=== PATIENT | female | born 1995 | race Caucasian/White ===

== ENCOUNTER 2024-11-11 14:49 | Outpatient (AMB) | payer OTHER, SELFPAY ==
--- NOTE | 2024-11-11 15:12 | A.OFFPC_ITS ---
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 Note: New patient visit Heel Builder Machine Required: No Allergies amoxicillin Allergy (Severe, Verified 11/11/24 15:12) Hives Medication List - Last Reconciled 11/11/24 by Jaqueline Stubbs PA-C levothyroxine (Levoxyl) 100 mcg PO DAILY Tobacco use date assessed: 11/11/24 Dental Screening Dental Screen Date: 11/11/24 Did you have a dental visit in the last 12 months?: No Did you have a dental problem in the last 6 months where you did not have access to dental care?: No Was dental information given to patient?: Patient declined 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 She states she reacts to the levothyroxine and is getting hives from it. She is now taking it every other day because she wants to stop it. 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 Paternal Grandmother High cholesterol HTN (hypertension) Social History (Updated 11/11/24 @ 15:20 by Omaira Rao CMA) Housing: House Alcohol intake: never Patient Tobacco Use Status: Never used Tobacco e-Cigarette/Vaping Use: Never Used Second Hand Smoke Exposure: Yes service: No Current occupational status: employed and unemployed Cognitive needs: No Hearing needs: No Vision needs: No Questionnaire PHQ-9 Over the last 2 weeks, how often have you been bothered by any of the following problems? 1. Little interest or pleasure in doing things: not at all 2. Feeling down, depressed, or hopeless: not at all 3. Trouble falling or staying asleep, or sleeping too much: not at all 4. Feeling tired or having little energy: not at all 5. Poor appetite or overeating: not at all 6. Feeling bad about yourself - or that you are a failure or have let yourself or your family down: not at all 7. Trouble concentrating on things, such as reading the newspaper or watching t elevision: not at all 8. Moving or speaking so slowly that other people could have noticed. Or the opposite - being so fidgety or restless that you have been moving around a lot more than usual: not at all 9. Thoughts that you would be better off or of hurting yourself in some way: not at all Total score: 0 Depression Screening Interpretation: Negative Depression Screening Done: Yes 26257 - PHQ-9 Billing: Yes Source: Developed by Drs. Cy Barnes, Noni Bowling, Hernando Haney and colleagues, with an educational arabella from [employer]. Thrive Questionnaire Date Thrive assessed: 11/11/24 I am a: Patient What is your living situation today?: I have a steady place to live Within the past 12 months, did the food you bought not last and you didn't have the money to get more?: Never true Within the past 12 months, did you worry whether your food would run out before you got money to buy more?: Never true Do you have trouble paying for medicines?: No Do you have trouble getting transportation to medical appointments?: No Do you have trouble paying your heating and electricity bill?: No Do you have trouble taking care of your child, family member or friend?: No Do you have trouble with day-to-day activities such as bathing, preparing meals, shopping, managing finances, etc.?: No Are you currently unemployed and looking for a job?: I choose not to answer this question Are you interested in more education?: I choose not to answer this question Please select the resources that you would like help with: None Currently or been in a relationship where the following occur: No concerns reported THRIVE Score: 0 AUDIT C Alcohol Use Questionnaire (AUDIT-C) 1. How often do you have a drink containing alcohol?: Never 3. How often do you have six or more drinks on one occasion?: Never Total Score: 0 PRAVEENA-7 AMB Questionnaire PRAVEENA-7 Date PRAVEENA - 7 assessed: 11/11/24 Feeling nervous, anxious, or on edge: 0 = Not at all Not being able to stop or control worryin = Not at all Worrying too much about different things: 0 = Not at all Trouble relaxin = Not at all Being so restless that it is hard to sit still: 0 = Not at all Becoming easily annoyed or irritable: 0 = Not at all Feeling afraid as if something awful might happen: 0 = Not at all Total PRAVEENA-7 score (0-4 normal; 5-9 mild; 10-14 moderate; 15-21 severe): 0 Source: Developed by Drs. Cy Barnes, Noni Bowling, Hernando Haney and colleagues, with an educational araeblla from [employer]. PRAVEENA-7 Assessment Billing PRAVEENA-7 Assessment Tool: PRAVEENA-7 Assessment 83718 Physical exam (Primary Care) Vital Signs: Last Vital Signs Pulse 90 11/11/24 15:14 Resp 12 11/11/24 15:14 BP 116/82 11/11/24 15:14 Pulse Ox 99 11/11/24 15:14 Oxygen Delivery Method Room Air 11/11/24 15:14 BMI result Body Mass Index 34.9 Tobacco/Smoking Status: Tobacco use Status Tobacco use date assessed 11/11/24 11/11/24 15:17 Patient Tobacco Use Status Never used Tobacco 11/11/24 15:20 e-Cigarette/Vaping Use Never Used 11/11/24 15:20 PHQ-9: PHQ-9 Score PHQ-9: Total score 0 11/11/24 15:23 Depression Screening Interpretation: Negative Thrive Assessment: Date of Thrive Assessment Date Thrive assessed 11/11/24 11/11/24 15:22 Currently or been in a relationship where the following occur: No concerns reported Const Orientation/consciousness: patient oriented x3 HENMT Ears: hearing grossly normal bilaterally Neck Thyroid: Thyroid normal Lymphatic: no lymphadenopathy noted Resp Auscultation: clear to auscultation bilaterally Cardio Rate: regular rate Rhythm: regular rhythm Heart sounds: S1 normal heart sound present and S2 normal heart sound present GI Inspection: Yes normal to inspection Palpation (GI): Soft to palpation and Other GI palpation findings present (nontender, no cva tenderness) Auscultation: normoactive bowel sounds Rectal Exam - Female: deferred Skin General skin exam: no rashes or lesions noted Neuro General: patient oriented x3, gait normal and no focal motor deficits Coding Level of Care Code New Pt Level 3 (18982) Complex EM visit Add On G2211 Diagnoses Hypothyroid E03.9 Additional Codes PRAVEENA-7 Assessment Billing - PRAVEENA-7 Assessment Tool: PRAVEENA-7 Assessment 04484 ([id number]) PHQ-9 - 07526 - PHQ-9 Billing: Yes ([id number]) Assessment & Plan Assessment & Plan (1) Hypothyroid: Code(s): E03.9 - Hypothyroidism, unspecified Category: Medical Plan: We will check labs today and follow up pending test results. Plan Physical labs ordered. Advised to return for a full physical Orders: Orders TSH reflex Free T4 Today E03.9 - Hypothyroidism, unspecified, Z00.00 - Encounter for general adult medical examination without abnormal findings Complete Blood Count Auto Diff Today E03.9 - Hypothyroidism, unspecified, Z00.00 - Encounter for general adult medical examination without abnormal findings UA CC w/rflx Micro + Cult Today E03.9 - Hypothyroidism, unspecified, R30.0 - Dysuria, Z00.00 - Encounter for general adult medical examination without abnormal findings Comprehensive [place]. Panel Fast Today E03.9 - Hypothyroidism, unspecified, Z00.00 - Encounter for general adult medical examination without abnormal findings Hemoglobin A1c Today E03.9 - Hypothyroidism, unspecified, R73.01 - Impaired fasting glucose, Z00.00 - Encounter for general adult medical examination without abnormal findings Lipid Panel Today E03.9 - Hypothyroidism, unspecified, Z00.00 - Encounter for general adult medical examination without abnormal findings Thyroglobulin Antibodies Today E03.9 - Hypothyroidism, unspecified, Z00.00 - Encounter for general adult medical examination without abnormal findings Thyroid Peroxidase Antibodies Today E03.9 - Hypothyroidism, unspecified, Z00.00 - Encounter for general adult medical examination without abnormal findings
[2024-11-11 15:14] VITALS: BP 116/82; PULSE 90; RESP 12; O2SAT 99; BMI 34.9
--- OUTSIDE RECORDS SUMMARY | 2024-11-11 16:31 | XMS_ITS ---
Author Name [facility] Organization Unknown Care Team Organization Name Specialty Phone Email Start Date End Da te [facility] Lisa García DO Primary Care 01/01/202209/24
--- OUTSIDE RECORDS SUMMARY | 2024-11-11 16:31 | XMS_ITS | Clinical Summary ---
Author Organization [facility] [address] [facility] lding Address [address] [facility] [place] [address] Phone Care Team Providers Care Aboriginal Community Council Member Name Role Phone Physician, Pcp Unknown Primary Care Provider Gail vailable Allergies Active Allergy Reactions Criticality Noted Date Comments Amoxicillin Swelling Low 12/22/2017 Other Reaction(s): Hives/Urticaria Sulfa (Sulfonamide Antibiotics) 12/22/2017 Medications cetirizine (ZyrTEC) 10 mg tablet Take 1 tablet (10 mg total) by mouth every 12 (twelve) hours. 01/22/2022 Active levothyroxine (SYNTHROID, LEVOTHROID) 100 mcg tablet Take 1 tablet (100 mcg total) by mouth 1 (one) time each day. 90 each 04/15/2024 Active Active Problems Problem Noted Date Diagnosed Date Elevated SGOT 10/30/2020 Overview (01/28/2024): 59 on IP labs D/w Dr. Zepeda, will repeat NV 11/23/20 15 Obesity (BMI 30.0-34.9) 10/28/2018 Overview (01/28/2024): Pre BMI 35 HgbA1C at initial labs 5.0 One hour GTT in first trimester Repeat GTT 24-28 weeks if early is normal Level 2 Survey (at [facility] for BMI >40) Screen for MARLO (using tool) and refer for sleep study if positive Anesthesia consult for pre- BMI >45 or >50 lb weight gain DVT prophylaxis- Lovenox if CS and BMI >35 Hypothyroid 12/22/2017 Overview (01/28/2024): Two approaches: 1) TSH at diagnosis of and increase dose of levothyroxine if TSH >2.5, check TSH 4 weeks later - TSH 20.28. D/w Dr. Zepeda, will refer to Endocrine 12/21/20 - pt was not taking levothyroxine at time of IP labs, TSH 11/23 4.1, 12/21 5.17. 2)Double dose of levothyroxine two days per week, continue baseline dose other days, check TSH 4-6 weeks later Q trimester TSH with reflex once stable on meds Refer to Endocrine or PCP if they usually manage - saw Endocrine 02/26/2021, they had her double her dose on Friday and , will recheck in one month 04/09/2021 TSH 4.06, endocrine recommends staying on same dose Supplement once daily with iron 4-6 hours after levothyroxine Growth US at 32 weeks- 03/14/2021- normal growth scan. EFW- 76%tile Return to pre- dose of levothyroxine while inpatient and provide 1 mo Rx with plan for follow with PCP Immunizations Name Administration Dates Next Due Tdap Tetanus diptheria acell ular pertussis (Boostrix; Adacel) 7yo and older 11/04/2017 Surgical History Surgery Date Site/Laterality Comments WISDOM TOOTH EXTRACTION 2013 PROCEDURE: HISTORICAL WISDOM TEETH EXTRACTION SECTION 04/2021 PROCEDURE: HISTORICAL DELIVERY Medical History Medical History Date Comments Migraine with aura 04/06/2018 DX:Migraine w ith aura Acquired hypothyroidism 12/22/2017 DX:Acqui red hypothyroidism Gestational hypertension, antepartum 12/22/2017 DX:Gestational hypertension, antepartum Family history of cancer 04/27/2018 DX:Fami ly history of cancer; COMMENT: Genetic testing pending Obesity DX:Obesity HSV-1 infection DX:HSV-1 infecti on; COMMENT: coldsores Crepitus of left TMJ on open ing of jaw DX:Crepitus of left TMJ on o pening of jaw Seasonal allergies DX:Seasonal a llergies Anemia affecting i n third trimester 03/09/2021 DX:Anemia affecting pregnanc y in third trimester; COMMENT: H&H 9.0/29.8, will start on Fe supplementation Family History Medical History Relation Name Comments Breast cancer Aunt 1 Breast cancer Aunt 2 Hypertension Father Colon cancer Maternal Grandfather cigaret te use, ETOH abuse Hypertension Mother glaucoma Other: neg BRCA Mother Relation Name Status Comments Aunt 1 Aunt 2 Father Alive Maternal Grandfather Mother Alive Social History Tobacco Use Types Packs/Day Years Used Date Smoking Tobacco: Never Smokeless Tobacco: Never Alcohol Use Standard Drinks/Week Comments No 0 (1 standard drink = 0.6 oz pur e alcohol) Comments No Sex and Gender Information Value Date Recorded Sex Assigned at Not on file Legal Sex Female 3:24 PM EST Gender Identity Not on file Sexual Orientation Not on file Obstetrics History Para Term AB IAB SAB Ectopic Multiple Livin g Live Births 2 2 2 2 2 Date Outcome GA Total Labor Labor/2nd/3rd Weight Sex Type Anes PTL Kayla A1 A5 Name Clin 2017 Term 40w 0d 3614 g (127.5 oz) F Vag-S pont Epidur al N Livin g 9 9 [place] Complications:Third-degree p erineal laceration, ,-induced hypertension,Hypothyroidism,Carrier of group B Streptococcus,Anemia Delivery Location:[facility] Comments:magnesium sul fate during labor 2021 Term 41w 2d 3975 g (140.2 oz) CS-LT ranv [facility]in g [facility] Comments:face presenta tion Last Filed Vital Signs Vital Sign Reading Time Taken Comments Blood Pressure 126/85 04/16/2024 10:06 AM EST Pulse 72 04/16/2024 10:06 AM EST Temperature - - Respiratory Rate 18 04/16/2024 10:06 AM EST Oxygen Saturation - - Inhaled Oxygen Concentration - - Weight 87.2 kg (192 lb 3.2 oz) 04/16/2024 10:06 AM EST Height 160 cm (5' 3 ) 04/16/2024 10:06 AM EST Body Mass Index 34.05 04/16/2024 10:06 AM EST Plan of Treatment Health Maintenance Due Date Last Done Comments Hepatitis B Vaccines (1 of 3 - 19+ 3-dose series) 2012 Social Influencers of Health Screening 02/02/2022 Depression Screening 02/25/2024 Hypertension/CHF/CAD Annual BMP Blood Test 04/16/2024 04/10/2023 COVID-19 Vaccine ( season) 2024 Influenza Vaccine (#1) 2024 Cervical Cancer Screening: HPV 07/05/2025 07/05/2022 Cervical Cancer Screening: Pap Smear 07/05/2025 07/05/2022, 07/05/2022, 07/05/2022, Additional history exists DTaP,Tdap,and Td Vaccines (2 - Td or Tdap) 11/05/2027 11/04/2017 Cholesterol Screening (Lipid Panel) 04/10/2028 04/10/2023 HIV Screening Completed 10/25/2020 Hepatitis C Screening Completed 10/25/2020 HIB Vaccines Aged Out No longer eligi ble based on patient's age to complete this topic HPV Vaccines Aged Out No longer eligi ble based on patient's age to complete this topic Hepatitis A Vaccines Aged Out No long er eligible based on patient's age to complete this topic IPV Vaccines Aged Out No longer eligi ble based on patient's age to complete this topic MMR Vaccines Aged Out No longer eligi ble based on patient's age to complete this topic Meningococcal ACWY Vaccine Aged Out N o longer eligible based on patient's age to complete this topic Meningococcal B Vaccine Aged Out No l onger eligible based on patient's age to complete this topic Pneumococcal Vaccine: Pediatrics (0 to 5 Years) and At-Risk Patients (6 to 49 Years) Aged Out No longer eligible based on patient's age to complete this topic RSV Immunization Patients Under 20 months Aged Out No longer eligible based on patient's age to complete this topic Varicella Vaccines Aged Out No longer eligible based on patient's age to complete this topic Procedures Procedure Name Priority Date/Time Associated Diagnosis Comments ANNUAL BMP BLOOD TEST Routine 04/10/2023 LIPID PANEL Routine 04/10/2023 HPV Routine 07/05/2022 PAP SMEAR Routine 07/05/2022 HEPATITIS C SCREENING Routine 10/25/2020 HIV SCREENING Routine 10/25/2020 from Last 3 Months or Most Recently Relevant to Health Maintenance Results * Annual BMP Blood Test (04/10/2023) [facility] Annual BMP Blood Test abstracted [facility] Provider HEALTH MAINTENANCE Final Result * Lipid panel (04/10/2023) [facility] LDL/HDL Ratio 2 0 - 4 Triglycerides 50 0 - 150 mg/dL Cholesterol 100 0 - 200 mg/dL HDL 43 >=40 mg/dL LDL Cholesterol 47 0 - 100 mg/dL Blood Venous blood specimen / Unknown Result [facility] Provider LAB BLOOD ORDERABLES Jelly l Result * Cervical Cancer Screening: HPV (07/05/2022) [facility] Cervical Cancer Screening: HPV abstracted, no interpretation [facility] Provider HEALTH MAINTENANCE Final Result * Pap smear (07/05/2022) 07/05/2022 Narrative HISTORICAL TESTING LAB RESULTING AGENCY - 07/11/2022 6:26 AM EDT [id number] THINPREP PAP, IMAGED: NEGATIVE FOR SQUAMOUS INTRAEPITHELIAL LESION AND MALIGNANCY . TORSTEN JUAN(ASCP) (CASE ELECTRONICALLY SIGNED 07 10 2022) ADEQUACY: SATISFACTORY ENDOCERVICAL/TRANSFORMATION ZONE COMPONENT PRESENT. SOURCE: THINPREP PAP HPV IF ASCUS, CERVICAL, IMAGED CLINICAL INFORMATION: HPV IF DIAGNOSIS OF ASCUS. HORMONES, PAP HX NEGATIVE, [Z01.419] Elana Velásquez DO LAB CYTOLOGY ORDERABLES Final Result HISTORICAL TESTING LAB RESULTING AGENCY * HIV Screening (10/25/2020) [facility] HIV Screening abstracted [facility] Provider HEALTH MAINTENANCE Final Result * Hepatitis C Screening (10/25/2020) [facility] Hepatitis C Screening abstracted us Historical Provider HEALTH MAINTENANCE Final Result from Last 3 Months or Most Recently Relevant to Health Maintenance Insurance [facility] Care Teams Aboriginal Community Council Member Relationship Specialty Start Date End Date Physician, Pcp Unknown PCP - General 04/16/24
== END 2024-11-11 15:38 | disposition home or self-care (01) ==
LOC: HO.HMCFM 14:50
PROVIDERS: PCP Physician Assistant; Visit Provider Physician Assistant
DX: E03.9 Hypothyroidism, unspecified (principal)

== ENCOUNTER → 2024-11-11 14:49 | Outpatient (BNVA) | payer OTHER, SELFPAY | PROVIDERS: PCP Physician Assistant; Visit Provider Physician Assistant | DX: E03.9 Hypothyroidism, unspecified (principal) | CPT/HCPCS: 96127; 99202 ==

== ENCOUNTER 2024-11-12 09:38 | Outpatient (REF) | payer OTHER, SELFPAY ==
--- OUTSIDE RECORDS SUMMARY | 2024-11-12 10:14 | XMS_ITS | Clinical Summary ---
Author Organization [facility] [address] [facility] lding Address [address] [facility] [place] [address] Phone Care Team Providers Care Concrete Bucket Hooker Name Role Phone Physician, Pcp Unknown Primary [...] early is normal Level 2 Survey (at [facility] for BMI >40) Screen for MARLO [...] ,-induced hypertension,Hypothyroidism,Carrier of group B Streptococcus,Anemia Delivery Location:[facility] Comments:magnesium sul fate during labor 2021 Term 41w 2d 3975 g (140.2 oz) CS-LT ranv Livin g Dr [facility] Comments:face presenta tion Last Filed Vital Signs [...] 11/04/2017 Cholesterol Screening (Lipid Panel) 04/10/2028 04/10/2023 RSV Immunization Adult Patients (1 - 1-dose 75+ series) 2068 HIV Screening Completed 10/25/2020 Hepatitis C Screening [...] TEST Routine 04/10/2023 LIPID PANEL Routine 04/10/2023 HM HPV Routine 07/05/2022 PAP SMEAR Routine 07/05/2022 HEPATITIS C SCREENING Routine 10/25/2020 HIV SCREENING Routine 10/25/2020 from Last 3 Months or Most Recently Relevant to Health Maintenance Results * Annual BMP Blood Test (04/10/2023) Pathologist [facility] Annual BMP Blood Test abstracted Historical Provider HEALTH MAINTENANCE Final Result * Lipid panel (04/10/2023) [facility] LDL/HDL Ratio 2 0 - 4 Triglycerides 50 0 - 150 mg/dL Cholesterol 100 0 - 200 mg/dL HDL 43 >=40 mg/dL LDL Cholesterol 47 0 - 100 mg/dL Blood Venous blood specimen / Unknown Result [facility] Historical Provider LAB BLOOD ORDERABLES Jelly l Result * Cervical Cancer Screening: HPV (07/05/2022) [facility] Cervical Cancer Screening: HPV abstracted, no interpretation Result [facility] Historical Provider HEALTH MAINTENANCE Final Result * Pap smear (07/05/2022) 07/05/2022 Narrative HISTORICAL TESTING LAB RESULTING AGENCY - 07/11/2022 6:26 AM EDT [id number] THINPREP PAP, IMAGED: NEGATIVE FOR SQUAMOUS INTRAEPITHELIAL LESION AND MALIGNANCY . MISTY MAYES , TORSTEN(ASCP) (CASE ELECTRONICALLY SIGNED 07 10 2022) ADEQUACY: SATISFACTORY ENDOCERVICAL/TRANSFORMATION ZONE COMPONENT PRESENT. SOURCE: THINPREP PAP HPV IF ASCUS, CERVICAL, IMAGED CLINICAL INFORMATION: HPV IF DIAGNOSIS OF ASCUS. HORMONES, PAP HX NEGATIVE, [Z01.419] Elana Velásquez DO LAB CYTOLOGY ORDERABLES Final Result HISTORICAL TESTING LAB RESULTING AGENCY * HIV Screening (10/25/2020) [facility] HIV Screening abstracted Historical Provider HEALTH MAINTENANCE Final Result * Hepatitis C Screening (10/25/2020) Hepatitis C Screening abstracted us Historical Provider HEALTH MAINTENANCE Final Result from Last 3 Months or Most Recently Relevant to Health Maintenance Insurance [facility] Care Teams Concrete Bucket Hooker Relationship Specialty Start Date End Date Physician, Pcp Unknown PCP - General 04/16/24
[2024-11-12 11:21] LABS: MANUAL DIFF FLAG NO
[2024-11-12 11:26] LABS: Hematocrit 34.9 % (37.0-47.0); Hemoglobin 10.7 g/dl (12.0-16.0); Imm Gran Abs Auto 0.01 X10*3/uL (0.00-0.03); Imm Gran Pct Auto 0.2 % (0.0-0.4); Lymphocytes Absolute Auto 1.7 X10*3/uL (1.2-4.9); Mean Corpuscular HGB Conc 30.7 g/dl (31.0-35.0); Mean Corpuscular Hemoglobin 24.4 pg (27.0-33.0); Mean Corpuscular Volume 79.7 fL (80.0-98.0); NRBC Abs Auto 0.000 X10*3/uL (0.0-0.012); NRBC Pct Auto 0.0 /100WBC (0.0-0.2); Platelet Count 245 X10*3/uL (160-400); Red Blood Count 4.38 X10*6/uL (4.20-5.50); White Blood Count 5.8 X10*3/uL (4.8-10.8)
[2024-11-12 11:39] LABS: Hemoglobin A1C 104.5328 umol/L; Total Hemoglobin (HGBA1C) 2883.2160 umol/L
[2024-11-12 12:43] LABS: Alanine Aminotransferase 9 U/L (0-31); Albumin Level 4.7 g/dL (3.5-5.0); Alkaline Phosphatase 90 U/L (39-117); Anion Gap 12 (12-20); Aspartate Amino Transferase 20 U/L (5-31); Blood Urea Nitrogen 9 mg/dL (9-16); Calcium 9.1 mg/dL (8.4-10.2); Carbon Dioxide 28 mmol/L (22-29); Chloride 107 mmol/L (96-108); Cholesterol 111 mg/dL (<200); Estimated Glomerular Filt Rate > 60; HDL Cholesterol 40 mg/dL (>40); Potassium 3.9 mmol/L (3.3-5.1); Sodium 143 mmol/L (135-145); Total Protein 7.6 g/dL (6.5-8.0); Triglycerides 40 mg/dL (<150)
[2024-11-12 13:30] LABS: Free T4 (Free Thyroxine) 0.86 ng/dL (0.71-1.85)
[2024-11-12 14:39] LABS: Appearance Urine Clear; Glucose Urine UA Negative (Negative); PH 7.0 (5.0-9.0); Specific Gravity - Urine 1.025 (1.005-1.025)
[2024-11-17 17:10] LABS: Thyroglobulin Antibodies 8 IU/mL (< or = 1)
== END 2024-11-12 09:39 | disposition home or self-care (01) ==
LOC: HO.WFDLDS 09:38
PROVIDERS: Visit Provider Physician Assistant
DX: Z00.00 Encounter for general adult medical examination without abnormal findings (principal); R73.01 Impaired fasting glucose; E03.9 Hypothyroidism, unspecified; R30.0 Dysuria
CPT/HCPCS: 36415; 80053; 80061; 81003; 83036; 84439; 84443; 85025; 86376; 86800

== ENCOUNTER 2024-12-08 15:54 | Outpatient (AMB) | payer OTHER, SELFPAY ==
--- NOTE | 2024-12-08 15:28 | MHC.PC.OV ---
Intake Visit Reasons: bloodwork results Intake Note: Blood work results Extension Service Specialist In Charge Required: No Allergies amoxicillin Allergy (Severe, Verified 12/08/24 15:51) Hives Medication List - Last Reconciled 12/08/24 by Jaqueline Stubbs PA-C levothyroxine (Levoxyl) 100 mcg PO DAILY Tobacco use date assessed: 12/08/24 Dental Screening Dental Screen Date: 11/11/24 HPI bloodwork results HPI Details Pt is a 29 y/o female who presents for a follow up. She has a history of hypothyroidism. Endo: We recently did labs which showed that she has antibodies. We discussed today that she is consistent with having Ja's hypothyroidism. She says that she has been off of the levothyroxine for the last month or so because she gets hives when she takes it. She did not want a rash when she got . She says that is being off of the levothyroxine has made her body feel better. She does not have any symptoms and overall feels well. 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 Paternal Grandmother High cholesterol HTN (hypertension) Social History (Updated 12/08/24 @ 15:52 by Omaira Rao CMA) Housing: House Alcohol intake: never Patient Tobacco Use Status: Never used Tobacco e-Cigarette/Vaping Use: Never Used Second Hand Smoke Exposure: Yes Use of substances other than those prescribed or required for medical reasons: No service: No Current occupational status: unemployed Cognitive needs: No Hearing needs: No Vision needs: No Questionnaire Thrive Questionnaire Date Thrive assessed: 11/11/24 PRAVEENA-7 AMB Questionnaire PRAVEENA-7 Date PRAVEENA - 7 assessed: 11/11/24 Source: Developed by Drs. Cy Barnes, Noni Bowling, Hernando Haney and colleagues, with an educational arabella from [employer]. Physical exam (Primary Care) Tobacco/Smoking Status: Tobacco use Status Tobacco use date assessed 12/08/24 12/08/24 15:52 Patient Tobacco Use Status Never used Tobacco 12/08/24 15:52 e-Cigarette/Vaping Use Never Used 12/08/24 15:52 Thrive Assessment: Date of Thrive Assessment Date Thrive assessed 11/11/24 12/08/24 15:28 Telehealth Telehealth Telehealth Platform: Telephone Location of provider rendering services: practice address Location of patient: address on file Patient Identification confirmed using: Name, : Yes Telehealth method: voice only Patient verbally consented to treatment: Yes Patient verbally consented to billing insurance company: Yes Patient informed of any privacy concerns related to visit: Yes Minutes spent on Phone/Video with Pt.: 15 Coding Level of Care Code Tele Est Pt Level 2 (99857) Diagnoses Hypothyroid E03.9 Assessment & Plan Assessment & Plan (1) Hypothyroid: Code(s): E03.9 - Hypothyroidism, unspecified Category: Medical Plan: We will try Synthroid. She will let me know if she is unable to tolerate this medication or has any side effects to this. We will rechecked TSH in 6 weeks. She will follow up sooner if needed. Patient understands and agrees with this plan. Orders: Orders TSH reflex Free T4 12/08/24 E03.9 - Hypothyroidism, unspecified Medications: New Synthroid (levothyroxine) 75 mcg PO DAILY 90 tabs 0RF NS E03.9 - Hypothyroidism, unspecified
--- OUTSIDE RECORDS SUMMARY | 2024-12-08 19:08 | XMS_ITS | Clinical Summary ---
Author Organization [facility] [address] [facility] lding Address [address] [facility] [place] [address] Phone Care Team Providers Care Hadoop Consultant Name Role Phone Physician, Pcp Unknown Primary [...] early is normal Level 2 Survey (at [facility] for BMI >40) Screen for MARLO [...] with plan for follow with PCP Immunizations Immunization Administration Dates Next Due Tdap Tetanus diptheria [...] ,-induced hypertension,Hypothyroidism,Carrier of group B Streptococcus,Anemia Delivery Location:[facility] Comments:magnesium sul fate during labor 2021 Term 41w 2d 3975 g (140.2 oz) CS-LT ranv Livin g Dr Arte[facility] Comments:face presenta tion Last Filed Vital [...] of 3 - 19+ 3-dose series) 2012 HPV Vaccines (1 - 3-dose SCDM series) 2020 Social Influencers of Health Screening 02/02/2022 Depression Screening 02/25/2024 Hypertension/CHF/CAD Annual BMP Blood Test 04/16/2024 04/10/2023 COVID-19 Vaccine ( - season) 2024 Influenza Vaccine (#1) 2024 Cervical [...] * Annual BMP Blood Test (04/10/2023) Pathologist [facility] Annual BMP Blood Test abstracted Historical Provider HEALTH MAINTENANCE Final Result * Lipid panel (04/10/2023) [facility] LDL/HDL Ratio 2 0 - 4 Triglycerides 50 0 - 150 mg/dL Cholesterol 100 0 - 200 mg/dL HDL 43 >=40 mg/dL LDL Cholesterol 47 0 - 100 mg/dL Blood Venous blood specimen / Unknown Result [facility] Historical Provider LAB BLOOD ORDERABLES Jelly l Result * Cervical Cancer Screening: HPV (07/05/2022) [facility] Cervical Cancer Screening: HPV abstracted, no interpretation Result [facility] Historical Provider HEALTH MAINTENANCE Final Result * Pap smear (07/05/2022) 07/05/2022 Narrative HISTORICAL TESTING LAB RESULTING AGENCY - 07/11/2022 6:26 AM EDT [id number] THINPREP PAP, IMAGED: NEGATIVE FOR SQUAMOUS INTRAEPITHELIAL [...] LAB RESULTING AGENCY * HIV Screening (10/25/2020) [facility] HIV Screening abstracted Historical Provider HEALTH MAINTENANCE Final Result * Hepatitis C Screening (10/25/2020) Hepatitis C Screening abstracted us Historical Provider HEALTH MAINTENANCE Final Result from Last 3 Months or Most Recently Relevant to Health Maintenance Insurance [facility] [employer] Care Teams Hadoop Consultant Relationship Specialty Start Date End Date Physician, Pcp Unknown PCP - General 04/16/24
--- OUTSIDE RECORDS SUMMARY | 2024-12-08 19:08 | XMS_ITS | Patient Health Record ---
Author Organization [facility] Address [address] [place] [address] Care Team Providers Care Helicopter Engineer Name Role Phone Ambika Wong Unavailable [phone] Allergies Allergen (clinical drug ingredient) Drug/Non Drug Allergy documented on EMR Reaction Allergy Type Onset Date Status amoxicillin Amoxicillin HIVES Drug Allergy Act tyrone Reason For Referral No Information Medications Medication SIG (Take, Route, Fr equency, Duration) Notes Start Date End Date Status Plus 27-1 MG as directed Orally daily; Duration: 90 days 04/15/2017 Active Social History Tobacco Use: Social History Observation Description Date Details (start date - stop date) Never Smoker NA - NA Tobacco Use/Smoking Question Answer Notes Are you a nonsmoker Alcohol Screen (Audit-C) Question Answer Notes Did you have a drink containing alcohol in the p ast year? No Points 0 Problems Problem Type SNOMED Code ICD Code Onset Dates Problem Status W/U Status Risk Notes Problem Migraine without aura, not refractory (disorder) (802834694) Migraine, unspecified, not intractable, without status migrainosus (G43.909) Active confirmed Plan Of Treatment Pending Test Test Name Order Date Ultrasound : (OB) First Trimester 2017 ABO AND RH 04/15/2017 Insurance Providers Payer Name Payer Address Payer Phone Subscriber Number Group Number Insured Name Patient Relationship to Insured Coverage Start Date Coverage End Date [facility] [address] [place] [address] [id number] LAURENMARIO RAY Gio Child - Insured has Financial Responsibility Medical (General) History Medical History History ICD Code Migraine, unspecified, not intractable, without status migrainosus Migraine, unspecified, not intractable, without status migrainosus Surgical History Surgery Date(Month/Year) WISDOM TEETH extraction 2014
== END 2024-12-08 17:05 | disposition home or self-care (01) ==
LOC: HO.HMCFM 15:54
PROVIDERS: PCP Physician Assistant; Visit Provider Physician Assistant
DX: E03.9 Hypothyroidism, unspecified (principal)